=== PATIENT | male | born 1995 | race Caucasian/White ===

== ENCOUNTER 2019-02-14 08:39 | Emergency (ER) | payer MEDICAID ==
[2019-02-14] MEDS ORDERED: Ketorolac 30 MG/ML SDV IM ONE (09:29)
--- NOTE | 2019-02-14 09:44 | EDM.PDOC ---
ED HPI GENERAL MEDICAL PROBLEM - General Chief Complaint: ENT Problem Stated Complaint: dental pain Time Seen by Provider: 02/14/19 09:02 Source of Information: Reports: Patient History Limitations: Reports: No Limitations - History of Present Illness INITIAL COMMENTS - FREE TEXT/NARRATIVE: Patient has recurrent tooth abscesses. Dentition per his own report is very poor and has struggled with dental pain for several years. Not able to afford any dental work. He is afebrile, no chills, no sweats, no cough, no SOB, no neck pain, no sinus pressure or pain, no abdominal pain, nausea, or vomiting. Per his report, HPI mostly negative. Upper and lower dental pain is all that is reported. Onset: Gradual Duration: Chronic, Intermittent Location: Reports: Other (upper and lower back teeth) Quality: Reports: Sharp, Stabbing Right Tooth/Teeth Pain Score (Numeric/FACES): 10 - Related Data Allergies Allergy/AdvReac Type Severity Reaction Status Date / Time No Known Allergies Allergy Verified 02/14/19 09:23 Home Meds: Home Meds Clindamycin HCl 1 cap PO Q8H 10 Days #30 capsule 06/21/18 [Rx] Past Medical History HEENT History: Reports: Other (See Below) Other HEENT History: multiple dental caries Psychiatric History: Reports: Depression Social & Family History - Caffeine Use Caffeine Use: Reports: Energy Drinks, Soda ED ROS ENT - Review of Systems Review Of Systems: See Below Constitutional: Reports: No Symptoms HEENT: Reports: Dental Pain Respiratory: Reports: No Symptoms Cardiovascular: Reports: No Symptoms Endocrine: Reports: No Symptoms GI/Abdominal: Reports: No Symptoms : Reports: No Symptoms Musculoskeletal: Reports: No Symptoms Skin: Reports: No Symptoms Neurological: Reports: No Symptoms Psychiatric: Reports: No Symptoms Hematologic/Lymphatic: Reports: No Symptoms Immunologic: Reports: No Symptoms ED EXAM, ENT - Physical Exam Exam: See Below Exam Limited By: No Limitations General Appearance: Alert, WD/WN, No Apparent Distress Eye Exam: Bilateral Eye: EOMI, PERRL Ears: Normal TMs Nose: Normal Inspection, Normal Mucousa, No Blood Mouth/Throat: Dental Pain, Dental Tenderness, Other (on examination teeth numbers 2, 3, 14, 15, 18,19, 30, and 31 are all nearly worn down to the gumline with obvious caries identified) Head: Atraumatic, Normocephalic Neck: Normal Inspection, Supple, Non-Tender, Full Range of Motion Respiratory/Chest: No Respiratory Distress, Lungs Clear, Normal Breath Sounds, No Accessory Muscle Use, Chest Non-Tender Cardiovascular: Normal Peripheral Pulses, Regular Rate, Rhythm, No Edema, No Gallop, No JVD, No Murmur, No Rub GI/Abdominal: Normal Bowel Sounds, Soft, Non-Tender, No Organomegaly, No Distention, No Abnormal Bruit, No Mass Neurological: Alert, Oriented, CN II-XII Intact, Normal Cognition, Normal Gait, Normal Reflexes, No Motor/Sensory Deficits Psychiatric: Normal Affect, Normal Mood Skin: Warm, Dry, Intact, Normal Color, No Rash Lymphatic: No Adenopathy ED ENT PROCEDURES - Additional/Other Procedure(s) Other (Free Text) Procedure(s): Dental Block superior and inferior performed. 2 mL 1% lidocaine injected to upper teeth with greater palatine nerve block 2 mL 1% lidocaine injected to lower with inferior alveolar nerve block Course - Vital Signs Last Recorded V/S: Last Vital Signs Temp 37.1 C 02/14/19 08:50 Pulse 67 02/14/19 08:50 Resp 16 02/14/19 08:50 BP 131/83 02/14/19 08:50 Pulse Ox 99 02/14/19 08:50 - Orders/Labs/Meds Meds: Medications Discontinued Medications Generic Name Dose Route Start Last Admin Trade Name Tommie PRN Reason Stop Dose Admin Ketorolac Tromethamine 30 mg 02/14/19 09:29 Toradol IM 02/14/19 09:30 ONETIME ONE Lidocaine HCl 5 ml 02/14/19 09:12 Xylocaine-Mpf 1% INJECT 02/14/19 09:13 ONETIME ONE Departure - Departure Time of Disposition: 10:03 Disposition: Home, Self-Care 01 Condition: Good Clinical Impression: Dental abscess - Discharge Information *PRESCRIPTION DRUG MONITORING PROGRAM REVIEWED*: Not Applicable *COPY OF PRESCRIPTION DRUG MONITORING REPORT IN PATIENT SIA: Not Applicable Instructions: Dental Abscess, [id number] Referrals: Dave Ashley MD [Primary Care Provider] - Additional Instructions: Plan 1. Try to attend the [facility] on Friday. It is first come/first serve so you would want to be there very early 2. continue to take your antibiotic to prevent any infective abscess from developing further 3. Stay well hydrated 4. Alternate 800 mg ibuprofen every 8 hours with 1,000 mg tylenol every 6-8 hours for pain relief 5. Follow up with primary provider as needed for additional symptom management 6. Please call if you have any further questions or concerns - Problem List & Annotations (1) Dental abscess SNOMED Code(s): 851429643 Code(s): K04.7 - PERIAPICAL ABSCESS WITHOUT SINUS Status: Acute Priority : Medium Current Visit: Yes - Problem List Review Problem List Initiated/Reviewed/Updated: Yes - Assessment/Plan Assessment:: dental caries/abscess right side
== END 2019-02-14 09:57 | disposition home or self-care (01) ==
LOC: VM.ED 08:39
DX: K04.7 Periapical abscess without sinus (principal); K02.9 Dental caries, unspecified
CPT/HCPCS: 64400; 96372; 99282; J1885; J2001

== ENCOUNTER 2022-07-25 20:32 | Emergency (ER) | payer MEDICAID ==
[2022-07-25] MEDS ORDERED: Take Home: Amoxicillin/Clavulanate K 875-125 MG Tab, 2 Tab Pack PO ONE (20:53)
[2022-07-25] MEDS ORDERED: Lidocaine 1% 5 ML VIAL INJECT ONE (20:54)
== END 2022-07-25 21:26 | disposition home or self-care (01) ==
LOC: VM.ED 20:32
DX: S61.255A Open bite of left ring finger without damage to nail, initial encounter (principal); W54.0XXA Bitten by dog, initial encounter
CPT/HCPCS: 12001; 99283; A9270

== ENCOUNTER 2024-10-12 17:32 | Emergency (ER) | payer MEDICAID ==
[2024-10-12] MEDS: Lidocaine 1% 30 ML SDV INJECT ONE (17:50)
[2024-10-12] MEDS: Acetaminophen/HYDROcodone 325-10 MG Tab PO ONE (18:14)
== END 2024-10-12 19:05 | disposition home or self-care (01) ==
LOC: VM.ED 17:32
DX: S62.304A Unspecified fracture of fourth metacarpal bone, right hand, initial encounter for closed fracture (principal); S62.306A Unspecified fracture of fifth metacarpal bone, right hand, initial encounter for closed fracture; F17.210 Nicotine dependence, cigarettes, uncomplicated; W22.8XXA Striking against or struck by other objects, initial encounter
CPT/HCPCS: 26605; 99283; A9270; J3490

== ENCOUNTER 2025-03-04 15:34 | Emergency (ER) | payer MEDICAID ==
[2025-03-04] MEDS: Ketorolac 30 MG/ML SDV IM ONE (16:43)
[2025-03-04] MEDS: Diphtheria,Pertussis(Acell),Tetanus Vaccine 0.5 ML Syringe IM ONE (16:44)
== END 2025-03-04 16:54 | disposition home or self-care (01) ==
LOC: VM.ED 15:34
DX: S91.331A Puncture wound without foreign body, right foot, initial encounter (principal); Z23 Encounter for immunization; W45.0XXA Nail entering through skin, initial encounter
CPT/HCPCS: 90471; 90715; 96372; 99283; J1885